=== PATIENT | female | born 1970 | race Two or more races ===

== ENCOUNTER 2020-04-15 19:50 | Emergency (ER) | payer OTHER ==
[~2020-04-15] VITALS: Ht 160 cm; Wt 99.9 kg
[2020-04-15] MEDS ORDERED: KETOROLAC 30 MG/1 ML ONE (20:27)
[2020-04-15] MEDS ORDERED: KETOROLAC 30 MG/1 ML IM ONE (20:30)
[2020-04-15 21:17] VITALS: BP 133/77
== END 2020-04-15 21:46 | disposition home or self-care (01) ==
LOC: ED 20:45
DX: M76.9 Unspecified enthesopathy, lower limb, excluding foot (principal); Z20.828 Contact with and (suspected) exposure to other viral communicable diseases; X50.1XXA Overexertion from prolonged static or awkward postures, initial encounter; Y93.01 Activity, walking, marching and hiking; Y92.89 Other specified places as the place of occurrence of the external cause; Y99.8 Other external cause status
CPT/HCPCS: 36415; 73564; 87635; 96372; 99284; J1885